=== PATIENT | female | born 1965 | race Caucasian/White ===

== ENCOUNTER 2016-10-08 21:07 | Observation (INO) | payer BC ==
[2016-10-08] MEDS ORDERED: IOPAMIDOL 300 (61%) 100 ML VIAL IV ONE (21:08)
[2016-10-08] MEDS ORDERED: ONDANSETRON 4 MG/2ML 2 ML VIAL ONE (22:09)
[2016-10-08] MEDS ORDERED: SODIUM CHLORIDE 0.9% 1,000 ML ONE ×2 (22:09→23:48)
[2016-10-08] MEDS ORDERED: MORPHINE SULFATE 4 MG/ML SYRINGE ONE (22:10)
[2016-10-08 22:24] LABS: ABSOLUTE NEUTROPHIL COUNT 2.9 K/mm3 (1.8-7.7); BASO % 0.4 % (0.2-1.0); EOS % 0.4 % (0.9-2.9); HEMATOCRIT 41.1 % (37.0-47.0); HEMOGLOBIN 14.1 gm/l (12.0-16.0); LYMPH # 2.3 (1.0-4.8); LYMPH % 40.5 % (15-45); MEAN CELL VOLUME 92.6 fl (81.0-99.0); MEAN CORPUSCULAR HEMOGLOBIN 31.8 pg (27.0-31.0); MEAN CORPUSCULAR HGB CONC 34.3 g/dl (33.0-37.0); MONO # 0.4 (0.0-0.8); MONO % 7.6 % (4-12); NEUT % 51.1 % (43-75); PLATELET COUNT 184 K/mm3 (130-400); RED CELL DISTRIBUTION WIDTH 11.9 % (11.5-14.5)
[2016-10-08 22:26] LABS: URINE BILIRUBIN NEGATIVE (NEGATIVE); URINE BLOOD TRACE (NEGATIVE); URINE GLUCOSE (UA) NEGATIVE (NEGATIVE); URINE LEUKOCYTE ESTERASE TRACE (NEGATIVE); URINE NITRITE NEGATIVE (NEGATIVE); URINE PROTEIN NEGATIVE (NEGATIVE); URINE UROBILINOGEN NORMAL (0-1 mg/dl)
[2016-10-08 22:27] LABS: URINE COLOR DARK YELLOW
[2016-10-08 22:28] LABS: URINE APPEARANCE SL CLOUDY
[2016-10-08 22:36] LABS: ALB/GLOB RATIO 1.6 (>1.0); ALBUMIN 4.1 gm/dL (3.5-5.7)
[2016-10-08 22:46] LABS: URINE RBC 0-2 /hpf
[2016-10-08 22:47] LABS: URINE BACTERIA RARE; URINE WBC 0-2 /hpf
[2016-10-08] MEDS ORDERED: ENEMA--adult 1 EACH ONE (23:48)
[2016-10-09 00:42] VITALS: BMI 21.7
[2016-10-09] MEDS ORDERED: MAGNESIUM HYDROXIDE 30 ML UDCUP PO PRN (00:58)
[2016-10-09] MEDS ORDERED: SODIUM CHLORIDE 0.9% 100 ML IV PRN (00:58)
[2016-10-09] MEDS ORDERED: BLISTEX LIPSTICK 1 EACH TP PRN (00:58)
[2016-10-09] MEDS ORDERED: BISACODYL 10 MG SUP PR PRN (00:58)
[2016-10-09] MEDS ORDERED: MENTHOL/CETYLPYRD 1 EACH LOZENGE PO PRN (00:58)
[2016-10-09] MEDS ORDERED: BISACODYL 5 MG TABLET.EC PO PRN (00:58)
[2016-10-09] MEDS ORDERED: MORPHINE SULFATE 2 MG/ML SYRINGE IV PRN (01:02)
[2016-10-09] MEDS ORDERED: ONDANSETRON 4 MG/2ML 2 ML VIAL IV PRN (01:02)
[2016-10-09] MEDS: D5 1/2NS with 20 mEq KCL 1,000 ML IV SCH ×2 (02:01→10:11)
[2016-10-09] MEDS ORDERED: PUMP TUBING ONE (02:04)
[2016-10-09 07:16] VITALS: BP 88/49
--- NOTE | 2016-10-09 07:46 | RAD ---
Exam: Acute abdominal series with PA chest COMPARISON: CT 10/08/2016 INDICATION: Abdominal pain. FINDINGS: Supine and upright views of the abdomen and a PA view of the chest were obtained. There are persistent dilated loops of small bowel identified within the central abdomen which measure up to 3.5 cm in diameter. No definite air-fluid levels are seen. Surgical clips are noted within the right side of the pelvis. Several phleboliths are noted within the pelvis. An abundance of stool is seen within the colon. There is no free air under the diaphragm. Cardiac silhouette is within normal limits. Lungs are well-inflated and clear. IMPRESSION: Persistent dilated small bowel loops within the central abdomen as seen on yesterday's CT, reflecting small bowel obstruction. There is no evidence of perforation. Lungs are clear.
--- NOTE | 2016-10-09 07:54 | CT ---
Exam Type: ABD/PELVIS W/ CON Date and Time: 10/08/2016 10:04 PM Clinical information: Left lower quadrant pain. Comparison: None Procedure: Imaging device: [employer] Aquilion [address] scanner 1 mm axial images were obtained through the abdomen and pelvis. Stacked reconstructed 3, 4 and 5 mm images were photographed in the axial coronal and sagittal planes. No oral contrast was utilized for this examination. 100 ml of Isovue-300 was injected intravenously. Exam: with intravenous contrast. FINDINGS: Lung bases:The visualized lung bases appear to be appropriate with no mass, effusion or consolidation visualized. Bilateral breast implants are observed. Liver: the liver is homogeneous with no discrete abnormality visualized. No definite findings of biliary dilatation are observed. Spleen: The spleen is homogeneous and does not appear to be enlarged. Gallbladder: Normal without enlargement or evidence of adjacent inflammatory changes. Pancreas: Normal without enlargement or evidence of adjacent inflammatory changes. Adrenal glands: Normal without enlargement or evidence of adjacent inflammatory changes. Abdominal aorta: Atherosclerotic vascular calcification of the aorta is noted with no focal aneurysm visualized. Kidneys: The kidneys appear to be symmetric in size with no perinephric inflammatory changes are identified. No current findings of hydronephrosis are seen. Bowel structures: There is a large amount of stool within the visualized colon. There are fluid filled dilated loops of small bowel seen throughout the abdomen. The terminal ileum appears to be decompressed with a relative transition seen within the right lower quadrant portion of the pelvis with some fecal gestation of the small bowel contents observed proximal to the relative transition. A small amount of pelvic free fluid is visualized. Appendix: The appendix is well-visualized and appears to be of normal caliber. No periappendiceal inflammatory changes or CT findings of appendicitis are currently observed. Bladder: Partially decompressed. Hernia: There is a small fat filled umbilical hernia noted. Adenopathy: No significant enlarged adenopathy is visualized. Osseous structures: No discrete osseous abnormalities are identified. Pelvic structures: No discrete pelvic abnormalities are visualized in this examination. IMPRESSION: 1. Findings consistent with a small bowel obstruction with a relative transition within the right lower quadrant with some equalization of the small bowel contents proximal to the relative transition noted. 2. A large amount of stool within the visualized colon. 3. A normal appearance of the appendix without CT evidence of appendicitis. 4. A small amount of pelvic free fluid. 5. Bilateral breast implants. The findings were called to the emergency room at 2331 hours, 10/08/2016, by [facility].
[2016-10-09] MEDS ORDERED: TAMOXIFEN CITRATE 10 MG TABLET PO SCH (09:00)
[2016-10-09] MEDS ORDERED: PNEUMOCOCCAL 23-VAL P-SAC VAC 0.5 ML VIAL IM V ONE (09:00)
[2016-10-09] MEDS ORDERED: DOCUSATE SODIUM 100 MG CAPSULE PO SCH (09:00)
[2016-10-09] MEDS ORDERED: ENEMA--adult 1 EACH PR ONE (10:39)
--- NOTE | 2016-10-09 11:02 | HP ---
Filipe Garcia [id number] : 1965 DATE OF ADMISSION: 10/08/2016 IDENTIFICATION: Ms. Garcia is a 51-year-old followed by Stefania Sales NP. CHIEF COMPLAINT: Abdominal pain. HISTORY OF PRESENT ILLNESS: Ms. Garcia reports onset of abdominal pain and bloated feeling October 08 in the evening. She had some nausea, but no vomiting. The pain got worse, so she came to [facility] Emergency Room. A CT scan was done which showed a small bowel obstruction and she was referred to the hospitalist service for observation. She was given a Fleets enema and had a formed bowel movement while still in the emergency department. REVIEW OF SYSTEMS: HEENT: She has had some faintness and headache. Respiratory: No cough or dyspnea. Cardiac: No chest pain or palpitations. Gastrointestinal: As per the history of present illness. Genitourinary: No dysuria or urgency. Musculoskeletal: No complaints. Constitutional: No fevers or chills. No recent weight change. PAST MEDICAL HISTORY: Breast cancer diagnosed last December. She has had lumpectomy, radiation, and treatment with tamoxifen. PAST SURGICAL HISTORY: 1. Lumpectomy. 2. Bilateral breast augmentation. 3. Tubal . 4. Tubal ligation followed by a reversal. 5. Subsequent surgery for lysis of adhesions. 6. Ankle surgery. ALLERGIES: None known. MEDICATIONS: She is takin. Multivitamin daily. 2. Fish oil supplement. 3. Tamoxifen 20 mg by mouth daily. HABITS: No current or past tobacco or drug use. She drinks alcohol socially about once a week. SOCIAL HISTORY: Lives with her outside of [place]. Works on the [employer]. FAMILY HISTORY: Positive for diabetes. PHYSICAL EXAMINATION:GENERAL: This is a thin well appearing 51-year-old in no acute distress. She does report that she is hungry at this time. VITAL SIGNS: Temperature 97.9, pulse 72, blood pressure 88/49, respiratory rate of 16, oxygen saturation 99% on room air. HEENT: Pupils equal, round, and reactive. Extraocular muscles intact. Orophyarnx is moist. CHEST: Clear. HEART: Regular. ABDOMEN: Soft with just some very mild lower quadrant tenderness. No guarding or rebound. Normal bowel tones. EXTREMITIES: Good peripheral pulses. No cyanosis, clubbing, or edema. NEUROLOGIC: Alert and oriented. No focal deficits. LABORATORIES: White blood cell count 5.7, normal differential, hemoglobin and hematocrit 14.1 and 41.1, platelets 184. Sodium 139, potassium 3.8, chloride 100, CO2 32, BUN 19, creatinine 0.8, glucose 100. Liver enzymes normal. Lipase normal at 14. Urinalysis is negative contaminated with epithelial cells. DIAGNOSTICS: CT scan of the abdomen and pelvis consistent with small bowel obstruction with relative transition in the right lower quadrant, large amount of stool within the visualized colon, normal appearing appendix. Follow up x-ray's 10 hours later this morning show persistent dilated small bowel loop within the central abdomen. No perforation. ASSESSMENT: Ms. Garcia is a 51-year-old with a history of abdominal surgery including surgery for tubal , two more procedures on her fallopian tubes and surgery for lysis of adhesions who presents with partial small bowel obstruction. She has resolution of her abdominal pain and is hungry this morning and passing gas, but still has the appearance of obstruction on x-ray. PLAN: 1. Refer to observation. 2. Clear liquid diet. 3. Ambulate and repeat enema. 4. If she remains asymptomatic and continues to pass gas and stool with an enema then likely discharge later today. JOB: [id number]
== END 2016-10-09 13:05 | disposition home or self-care (01) ==
LOC: ED 21:07 → MS 23:40
PROVIDERS: ADMIT Family Medicine; ATTEND Family Medicine
DX: K56.60 Unspecified intestinal obstruction (principal); Z23 Encounter for immunization
CPT/HCPCS: 90732; 83690; 85025; 80053; 83735; 81001; 74022; 74177; 96375; 99285 ×2; 96374; 96361; A9270 ×5; J2270 ×2; J2405; J7030 ×2; Q9967

== ENCOUNTER 2016-10-14 14:36 | Inpatient (IN) | payer BC ==
[2016-10-14] MEDS ORDERED: IV START KIT ONE ×2 (14:51→14:59)
[2016-10-14] MEDS ORDERED: SODIUM CHLORIDE 0.9% FLUSH 10 ML ONE ×3 (14:52→15:45)
[2016-10-14 15:10] VITALS: BMI 20.6
[2016-10-14 15:15] LABS: ABSOLUTE NEUTROPHIL COUNT 1.4 K/mm3 (1.8-7.7); BASO % 0.3 % (0.2-1.0); EOS % 0.3 % (0.9-2.9); HEMATOCRIT 38.1 % (37.0-47.0); HEMOGLOBIN 12.8 gm/l (12.0-16.0); LYMPH # 1.7 (1.0-4.8); MEAN CELL VOLUME 93.2 fl (81.0-99.0); MEAN CORPUSCULAR HEMOGLOBIN 31.3 pg (27.0-31.0); MEAN CORPUSCULAR HGB CONC 33.6 g/dl (33.0-37.0); MEAN PLATELET VOLUME 10.1 fl (7.4-10.4); MONO # 0.3 (0.0-0.8); MONO % 9.9 % (4-12); NEUT % 41.5 % (43-75); PLATELET COUNT 185 K/mm3 (130-400); RED CELL DISTRIBUTION WIDTH 11.9 % (11.5-14.5)
[2016-10-14 15:31] LABS: ALB/GLOB RATIO 1.8 (>1.0); ALBUMIN 4.1 gm/dL (3.5-5.7); CALCIUM 9.5 mg/dL (8.6-10.3)
[2016-10-14] MEDS ORDERED: ONDANSETRON 4 MG/2ML 2 ML VIAL IV PRN (15:37)
[2016-10-14] MEDS ORDERED: PUMP TUBING ONE (15:41)
[2016-10-14] MEDS ORDERED: SODIUM CHLORIDE 0.9% 500 ML IV SCH (15:45)
--- NOTE | 2016-10-14 15:46 | RAD ---
10/14/2016 3:42 PM ABDOMEN FLAT AND UPRIGHT HISTORY: Small bowel obstruction COMPARISON: 10/09/[address] abdomen pelvis 10/08/2016. TECHNIQUE: Upright and supine views. FINDINGS: There are nondilated loops of small and large bowel containing gas and stool. There are no dilated loops to suggest ileus or obstruction. There is no evidence of free intra-abdominal gas. Overall decrease in small bowel gas is noted. No air-fluid levels are identified. Moderate amount of stool is present within the distal large bowel and proximal ascending colon. Osseous structures are intact. IMPRESSION: Overall decrease in small bowel gas. No evidence of obstruction.
[2016-10-14] MEDS: SODIUM CHLORIDE 0.9% 1,000 ML IV SCH (15:51)
[2016-10-14 17:11] LABS: SPECIFIC GRAVITY 1.015 (1.001-1.030); URINE BILIRUBIN NEGATIVE (NEGATIVE); URINE BLOOD NEGATIVE (NEGATIVE); URINE GLUCOSE (UA) NEGATIVE (NEGATIVE); URINE LEUKOCYTE ESTERASE NEGATIVE (NEGATIVE); URINE NITRITE NEGATIVE (NEGATIVE); URINE PROTEIN NEGATIVE (NEGATIVE); URINE UROBILINOGEN NORMAL (0-1 mg/dl)
[2016-10-14 17:16] LABS: URINE APPEARANCE CLEAR; URINE COLOR YELLOW
[2016-10-14 17:54] LABS: URINE BACTERIA 0; URINE EPITHELIAL CELLS 0-2 /hpf; URINE RBC 0-2 /hpf; URINE WBC NEG /hpf
[2016-10-14] MEDS ORDERED: MAGNESIUM HYDROXIDE 30 ML UDCUP PO PRN (17:59)
[2016-10-14] MEDS ORDERED: MENTHOL/CETYLPYRD 1 EACH LOZENGE PO PRN (17:59)
[2016-10-14] MEDS ORDERED: BISACODYL 5 MG TABLET.EC PO PRN (17:59)
[2016-10-14] MEDS ORDERED: SODIUM CHLORIDE 0.9% 100 ML IV PRN (17:59)
[2016-10-14] MEDS ORDERED: BISACODYL 10 MG SUP PR PRN (17:59)
[2016-10-14] MEDS ORDERED: BLISTEX LIPSTICK 1 EACH TP PRN (17:59)
[2016-10-14] MEDS ORDERED: ENEMA--adult 1 EACH PR PRN (18:01)
--- NOTE | 2016-10-14 18:38 | HP ---
LUTHER KAUR DATE OF ADMISSION: October 14, 2016 CHIEF COMPLAINT: Abdominal pain and constipation. HISTORY OF PRESENT ILLNESS: Luther is a 51-year-old female. She was just admitted last week overnight to the hospitalist service for a small bowel obstruction/constipation. She was kept overnight and had onset of bowel movements and passing gas and was discharged on October 09, 2016. Since then she has had continued discomfort. She was seen by her regular provider on October 10, 2016, and started on magnesium citrate over the weekend. On Thursday, she took magnesium citrate and had a well formed bowel movement, same thing on Thursday. On Thursday, she was feeling quite a bit better and began her MiraLax and bisacodyl. On Thursday and Thursday, however, she had no further bowel movements and had onset of nausea and increased bloating and pain. She presented back to her primary provider's office this afternoon (Thursday) with increased abdominal pain and bloating and no bowel movement times three days. Her primary provider, Hernandez Carrasco, contacted the hospitalist service and requested direct admission which we have provided. REVIEW OF SYSTEMS: As noted above, otherwise negative. No headache, no fever, no chills, no neck pain, no shortness of breath, no cough, no chest pain, no lower extremity weakness, numbness, tingling or swelling. PAST MEDICAL HISTORY: 1. Breast cancer diagnosed last December. She is status post lumpectomy, radiation and has begun treatment with tamoxifen. 2. Distant history of a small bowel obstruction back in 2001. This was treated with an adhesiolysis here at [facility]. PAST SURGICAL HISTORY: 1. Lumpectomy this year as noted above. 2. Bilateral breast augmentation. 3. Tubal in 2001. 4. Adhesiolysis in 2001. 5. Tubal ligation followed by reversal in the distant past. 6. Ankle surgery. ALLERGIES: NO KNOWN DRUG ALLERGIES. CURRENT MEDICATIONS: 1. Tamoxifen 20 mg orally daily. 2. Fish oil 1000 mg orally daily. 3. Multivitamin one orally daily. 4. Colace 100 mg orally daily. 5. MiraLax 17 g orally daily. SOCIAL HISTORY: No alcohol, tobacco or drug use. She lives with her and daughter outside of [place]. 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 FAMILY HISTORY: Significant for diabetes. PHYSICAL EXAMINATION: VITAL SIGNS: Temperature 97.9, pulse 56, blood pressure 115/58, respirations 16, O2 saturation 99% on room air. GENERAL: This is a thin, middle aged female. She is alert, calm, pleasant, no acute distress. HEENT: Normocephalic, atraumatic. Tympanic membranes are clear. Extraocular movements intact. Oropharynx is moist. NECK: Is supple. LUNGS: Clear to auscultation. HEART: Regular rhythm. ABDOMEN: Is maybe minimally distended. She does have tenderness in the left lower quadrant and mid epigastrium though there is no true rebound or guarding. Bowel tones are positive. There are no masses, no organomegaly. EXTREMITIES: With no edema. SKIN: Clear with no rashes. LABORATORIES: CBC with a white count of 3.4, hemoglobin 12.8, hematocrit 38.1, platelets of 185. Chemistry panel, sodium 140, potassium 3.8, chloride 103, carbon dioxide 29, BUN 14, creatinine 0.8, glucose of 91, total bilirubin 0.4, AST 28, ALT 20, alkaline phosphatase 36, total protein 6.4. Urinalysis is pending. IMAGING: Abdominal and pelvic x-rays show no air/fluid levels, no transition point. There is a moderate amount of stool in the distal large bowel. No obvious evidence of ileus or obstruction. ASSESSMENT AND PLAN: 1. Abdominal pain with recent small bowel obstruction. She does have continued constipation as well. Cannot rule out occult obstruction even though the x-rays appear negative at this point, given her history. We will go ahead and treat her with an aggressive bowel regimen overnight as well as supportive care, and reevaluate in the morning. We may need to consider repeat CT scan versus surgical evaluation if she does not get significant improvement. 2. Deep venous thrombosis prophylaxis is not indicated as the patient is anticipated to be in the hospital less than 48 hours. 3. Further care as dictated by clinical course. Cc: Hernandez Carrasco
[2016-10-14] MEDS: MAGNESIUM CITRATE 300 ML BOT PO SCH ×2 (19:21→21:13)
[2016-10-14] MEDS: POLYETHYLENE GLYCOL 3350 17 G POWD.SUSP PO SCH (19:21)
[2016-10-14] MEDS: DOCUSATE SODIUM 100 MG CAPSULE PO SCH (21:13)
[2016-10-15] MEDS: SODIUM CHLORIDE 0.9% 1,000 ML IV SCH ×2 (00:34→08:35)
[2016-10-15 07:32] VITALS: BP 91/47
[2016-10-15] MEDS: DOCUSATE SODIUM 100 MG CAPSULE PO SCH ×2 (08:39→09:41)
[2016-10-15] MEDS: MAGNESIUM CITRATE 300 ML BOT PO SCH (08:39)
[2016-10-15] MEDS: POLYETHYLENE GLYCOL 3350 17 G POWD.SUSP PO SCH ×2 (08:40→09:41)
--- NOTE | 2016-10-15 11:01 | RAD ---
ABDOMEN ONE VIEW HISTORY: Follow-up of small bowel obstruction. Supine abdominal radiograph acquired. COMPARISON: Two-view series from 10/14/2016. FINDINGS: BOWEL GAS PATTERN: No gross small bowel dilatation. There is gaseous distention of a tortuous colon. Gas is seen within the rectum. ABDOMINOPELVIC CALCIFICATIONS: No abnormal calcifications. An anastomotic staple line projects over the right hemipelvis. OSSEOUS STRUCTURES: Calcification adjacent to the left greater trochanter may relate to gluteal tendinopathy. No destructive lesions. IMPRESSION: Nonobstructive bowel gas pattern. Evidence of prior bowel surgery.
--- NOTE | 2016-10-15 13:04 | DS ---
Filipe Garcia ADMIT DATE: 10/14/2016 DISCHARGE DATE: 10/15/2016 ADMISSION DIAGNOSES: 1. Abdominal pain. 2. Constipation. 3. Possible recurrent small bowel obstruction. DISCHARGE DIAGNOSIS Constipation with no evidence of bowel obstruction. ADMIT HISTORY AND PHYSICAL: Please see my history and physical note for details. Briefly, Filipe is a 51-year-old female who was just at our hospital last week overnight with an early small bowel obstruction. After being discharged on 10/09/2016, she was seen by her regular provider on 10/10/2016. She was started on mag citrate over the weekend and with bowel movements throughout the weekend, however, by Thursday and Thursday she no longer had bowel movements and by Thursday afternoon she was having increase in distention and pain again. She was seen by her primary provider Stefania Sales who was concerned about recurrence and it was elected to directly admit her to the hospitalist service. Once she was here, we worked her up. Her x-ray's actually did not appear to be consistent with a bowel obstruction though, she did have a significant amount of stool in the colon and her labs were otherwise unremarkable. She was treated over night with aggressive bowel regimen with mag citrate with a very large amount of stool overnight. By the morning of discharge she was actually feeling significantly better. We have elected to discharge her home. She is on a clear liquid diet and will advance this as tolerated. I have recommended she continue with her MiraLax and Colace and she will continue mag citrate as needed over the next couple of days. I would like her follow up with Stefania Sales in the next two days for a recheck prior to the weekend as well. JOB: [id number] CC: Stefania Sales
== END 2016-10-15 13:41 | disposition home or self-care (01) | DRG 390 ==
LOC: MS 14:36
PROVIDERS: ADMIT Family Medicine; ATTEND Family Medicine
DX: K56.60 Unspecified intestinal obstruction (principal); K59.00 Constipation, unspecified